=== PATIENT | female | born 1970 | race Caucasian/White ===

== ENCOUNTER 2016-03-26 10:32 | Observation (INO) | payer OTHER ==
[2016-03-26] MEDS ORDERED: LIDOCAINE 1% 5 ML SDV ONE (11:10)
[2016-03-26] MEDS ORDERED: SURGIFLO MATRIX KIT WITH THROMBIN TP ONE (11:13)
[2016-03-26] MEDS ORDERED: BACITRACIN 50,000 UNITS/10 ML SYR IRR ONE (11:13)
[2016-03-26] MEDS ORDERED: THROMBIN (RECOMBINANT) 20,000 UNIT VIAL TP ONE (11:13)
[2016-03-26] MEDS ORDERED: SKIN ADHESIVE (DERMABOND) 1 EACH TP ONE (11:13)
[2016-03-26] MEDS ORDERED: ceFAZolin 2 GM in D5W 100 ML IV ONE (11:30)
[2016-03-26] MEDS ORDERED: CHLORHEXIDINE GLUC HIBICLENS 118 ML BTL TP ONE (11:30)
[2016-03-26 11:57] LABS: % IMMATURE GRANULYOCYTES 0.1 % (0.0-1.1); ABSOLUTE IMMATURE GRANULOCYTES 0.01 10^3/uL (0.00-0.10); ADD DIFF? NO; ADD MORPH? NO; ADD SCAN? NO; ATYPICAL LYMPHOCYTE FLAG 10 (0-99); FRAGMENT RBC FLAG 0 (0-99); HEMATOCRIT 44.8 % (38.0-47.0); HEMOGLOBIN 15.2 g/dL (12.6-16.3); LEFT SHIFT FLG 0 (0-99); LIPEMIA HEMOLYSIS FLAG 90 (0-99); MEAN CELL HEMOGLOBIN 30.6 pg (27.9-34.1); MEAN CELL HEMOGLOBIN CONCENTR. 33.9 g/dL (32.4-36.7); MEAN CELL VOLUME 90.3 fL (81.5-99.8); MEAN PLATELET VOLUME 8.5 fL (8.7-11.7); PLATELET CLUMPS FLAG 0 (0-99); PLATELET COUNT 332 10^3/uL (150-400); RED BLOOD CELL COUNT 4.96 10^6/uL (4.18-5.33); RED CELL DISTRIBUTION WIDTH 12.6 % (11.5-15.2)
[2016-03-26] MEDS ORDERED: MIDAZOLAM 2 MG/2 ML VIAL ONE (12:05)
[2016-03-26] MEDS ORDERED: DEXAMETHASONE 4 MG/ML VIAL ONE (12:06)
[2016-03-26] MEDS ORDERED: LIDOCAINE 2% 100 MG/5 ML SYR IVP ONE (12:06)
[2016-03-26] MEDS ORDERED: ROCURONIUM 50 MG/5 ML VIAL ONE (12:06)
[2016-03-26] MEDS ORDERED: ONDANSETRON 4 MG/2 ML VIAL ONE (12:06)
[2016-03-26] MEDS ORDERED: REMIFENTANIL HCL 1 MG VIAL ONE (12:07)
[2016-03-26] MEDS ORDERED: PROPOFOL 200 MG/20 ML VIAL ONE (12:07)
[2016-03-26] MEDS ORDERED: fentaNYL 100 MCG/2 ML INJ ONE ×2 (12:07→14:12)
[2016-03-26] MEDS ORDERED: HYDROmorphONE/DILAUDID 2 MG/ML SYR ONE ×2 (12:07→14:53)
[2016-03-26] MEDS ORDERED: PROPOFOL/EMULSION 500 MG/50 ML BOTTLE IV ONE (12:08)
[2016-03-26] MEDS ORDERED: LACTULOSE 20 GM/30 ML UDCUP PO PRN (12:57)
[2016-03-26] MEDS ORDERED: ACETAMINOPHEN 325 MG TAB PO PRN (12:57)
[2016-03-26] MEDS ORDERED: ONDANSETRON 4 MG/2 ML VIAL IVP PRN (12:57)
[2016-03-26] MEDS ORDERED: DIAZEPAM 5 MG TAB PO PRN (12:57)
[2016-03-26] MEDS ORDERED: ONDANSETRON DISINTEGRATING 4 MG TAB PO PRN (12:57)
[2016-03-26] MEDS ORDERED: diphenhydrAMINE 25 MG CAP PO PRN (12:57)
[2016-03-26] MEDS ORDERED: POLYETHYLENE GLYCOL 3350 17 GM PKT PO PRN (12:57)
[2016-03-26] MEDS ORDERED: DIAZEPAM 10 MG/2 ML SYR IVP PRN (12:57)
[2016-03-26] MEDS ORDERED: MAGNESIUM HYDROXIDE 30 ML UDCUP PO PRN (12:57)
[2016-03-26] MEDS ORDERED: BISACODYL 10 MG SUPP PR PRN (12:57)
[2016-03-26] MEDS ORDERED: NS W/ 20 KCl/L 1,000 ML IV SCH (13:00)
[2016-03-26] MEDS ORDERED: HYDROmorphONE/DILAUDID 1 MG/ML SYR ONE (14:36)
[2016-03-26] MEDS ORDERED: DIAZEPAM 10 MG/2 ML SYR ONE (14:42)
--- NOTE | 2016-03-26 14:50 | POSTOPPROG ---
Post Op Note Date of Operation: 03/26/16 Surgeon: Justen Rashid Shortage Worker: TEJAL Cruz, PAC Pre-op Diagnosis: Adjacent level cervical stenosis Post-op Diagnosis: Adjacent level cervical stenosis Indication: Adjacent level cervical stenosis Procedure: ACDF C6/7 with removal of prior screws at c6 Inf/Abcess present in the surg proc area at time of surgery?: No EBL: 10cc PA Addendum - Addendum .: S Posterior neck pain O: NAD A&Ox3 MAEx4 5/5 and equal in BUE and BLE. Dressing c/d/i Plan: Advance diet as tolerated Optimize pain management Post op xrays pending DVT prophx: TEDs, SCDs, Lovenox POD3 Please notify NS with any change in neuro/motor exam
[2016-03-26] MEDS ORDERED: oxyCODONE IR 5 MG TAB PO PRN (15:38)
[2016-03-26] MEDS: morphINE SR 60 MG TAB PO SCH ×2 (16:26→21:43)
[2016-03-26] MEDS: oxyCODONE IR 5 MG TAB PO SCH ×2 (16:26→21:42)
--- NOTE | 2016-03-26 16:36 | DX ---
Intraoperative Fluoroscopy for Cervical Spine Surgery History: C6-C7 surgery. Comparisons: Outside x-rays from November 08, 2015. Fluoroscopy time: 7.5 seconds. Accumulative dose: 0.7 mGy. Findings: Two images demonstrate prior fusion of C4-C6, stable in appearance. There is new fusion a t C6-C7, with interbody bone graft placed, with screw fixation. No evidence for hardware complicatio n. Impression: Intraoperative fluoroscopy for cervical spine surgery at C6-C7.
[2016-03-26] MEDS: tiZANidine HCL 2 MG TAB PO PRN ×2 (16:40→21:43)
--- NOTE | 2016-03-26 18:58 | GOP ---
[f rep st] OPERATIVE REPORT DATE OF OPERATION: 03/26/2016 SURGEON: Justen Rashid MD CO SURGEON: Dr. Jeyson Burnett CONDENSER CLEANER: Aida Cruz PREOPERATIVE DIAGNOSIS: 1. Adjacent level breakdown C6-C7 with history of prior fusion C4 through C6. 2. Cervicalgia and radiculopathy. 3. Treatment refractory to nonoperative intervention. POSTOPERATIVE DIAGNOSIS: same PROCEDURE PERFORMED: 1. Anterior arthrodesis with approach to C6-C7. 2. Exploration of prior cervical fusion C5-C6 with subsequent removal of bilateral screws from the C6 level. 3. C6-C7 diskectomy and interbody fusion using a stand-alone 7 mm PEEK cage with integrated screws into the C6 and C7 vertebral bodies from the [employer]flux[employer]tr[employer] stand-alone system. 4. Use of intraoperative fluoroscopy, less than 1 hour physician time. 5. Use neuromonitoring. 6. Use of operating microscope. FINDINGS: per imaging SPECIMENS: None. ESTIMATED BLOOD LOSS: 30 mL. INDICATIONS: The patient is a 45-year-old woman, who has undergone prior multiple anterior cervical diskectomies and fusions, as well as posterior surgeries. She presented with worsening neck pain and radiculopathy, and had evidence of breakdown of the C6-C7 level which was inferior to her prior fusion at C4 through C6. After failing nonoperative intervention and given her multiple bilateral incisions and multiple surgical approaches, we decided to ask ENT for their assistance in this surgical procedure. Dr. Jeyson Burnett will dictate in a separate operative report the anterior cervical approach. She presents now for that surgical intervention. DESCRIPTION OF PROCEDURE: Patient was brought to the operating theater and underwent general endotracheal anesthesia without complications. She had Venodynes and ONEIDA hose placed. Her head was maintained supine on the operating table. Using lateral fluoroscopy and a spinal needle, we picked our entry point to the C6-C7 level. This was marked as a new right-sided transverse incision on the anterior aspect of her neck. This area was prepped and draped in the usual sterile surgical fashion. A timeout was completed per protocol, and the patient received antibiotics within 1 hour of incision. The incision was taken down with the scalpel, and then Dr. Jeyson Burnett in a separate op report will dictate the anterior exposure to the C6-C7 level. Once we landed on the inferior aspect of the plate at C6, we were able to identify the inferior plate and screws. She appeared to be solidly fused and given the fact that she had adhesions going superiorly, we decided not to expose the remainder of her plate. At this point, we exposed the C6-C7 level. We confirmed the level using lateral laparoscopy. After elevating the longus coli muscle from the anterior vertebral bodies of C6 and C7, deep retractors were placed to maintain our exposure. At this point, we sequentially removed the bilateral inferior screws from the C6 previous system, which were then passed off the field. [place] pins were placed into the plate into C6 and C7 and the C6-C7 disk space was placed in mild distraction. At this point, we completed a C6-C7 diskectomy with bilateral foraminotomies and osteophytectomies. We prepared the cartilaginous endplates and measured the interbody space. We then initially placed a titanium coated PEEK cage into the C6-C7 disk space filled with morselized autograft and allograft. We thought that we could place a small plate onto the vertebral bodies of C6 and C7; however, the C6 plate was too long and inferior and therefore we had to remove the titanium coated PEEK cage, and use a 7 mm stand-alone PEEK cage filled with morselized autograft and allograft. We placed two 13 mm screws through the cage itself into the vertebral bodies of C6 and C7. AP and lateral x-rays demonstrated good placement of the hardware. We obtained hemostasis with the bipolar and the wound was irrigated copiously with bacitracin irrigation. The wound was then closed in multiple layers using Vicryl sutures in the deep layers and Dermabond for the skin. The patient's wounds were dressed sterilely. She was then awakened, extubated, and taken to recovery room in stable condition. There were no complications and no noted changes on neuromonitoring throughout the procedure. COMPLICATIONS: None. /[id number]/MODL MTDD
[2016-03-26] MEDS: SERTRALINE HCL 100 MG TAB PO SCH (20:40)
[2016-03-26] MEDS: FAMOTIDINE 20 MG TAB PO SCH (20:40)
[2016-03-26] MEDS: SENNOSIDES/DOCUSATE SODIUM TAB PO SCH (20:40)
[2016-03-26] MEDS ORDERED: FAMOTIDINE 20 MG/NACL 50 ML IV SCH (21:00)
[2016-03-26] MEDS: ALPRAZolam 1 MG TAB PO PRN (23:21)
[2016-03-27] MEDS: tiZANidine HCL 2 MG TAB PO PRN ×3 (04:01→14:53)
[2016-03-27] MEDS ORDERED: LEVOTHYROXINE 88 MCG TAB PO SCH (06:00)
[2016-03-27 08:16] VITALS: BP 98/67; PULSE 65; RESP 16; TEMP 97.9; O2SAT 93
[2016-03-27] MEDS ORDERED: TOPIRAMATE 25 MG TAB PO SCH (09:00)
[2016-03-27] MEDS ORDERED: ARIPiprazole 10 MG TAB PO SCH (09:00)
[2016-03-27] MEDS: SENNOSIDES/DOCUSATE SODIUM TAB PO SCH (09:40)
--- NOTE | 2016-03-27 09:40 | NEUSURGPN ---
Assessment/Plan: 45 y/o female POD1 from C6/7 ACDF with exploration and removal of screws from prior fusion at C6. -Post op xrays pending -Optimize pain management -PT/OT -DVT prophx: TEDs, SCDs, Lovenox okay POD3 -Discussed with Dr. Rashid -Please notify NS with any change in neuro/motor exam Subjective: Posterior neck pain, throat pain Objective: NAD A&OX3 MAEx4, Neck soft, supple, no edema. 5/5 and equal in BUE and BLE - Physician Discussed Patient with : [facility] Physical Exam - Vitals, I&O, Labs I and O 03/26/16 03/27/16 03/28/16 05:59 05:59 05:59 Intake Total 2900 Output Total 925 Balance 1975 Intake: Oral (ml) 1100 IV Intake (ml) 1400 IV Infused (ml) 400 ceFAZolin 1 GM/DEXTROSE 100 50 ml @ 200 mls/hr IV Q8H VENANCIO Rx#:[id number] NS W/ 20 KCl/L 1,000 ml @ 300 75 mls/hr IV CONT VENANCIO Rx #:[id number] Output: Urine (ml) 900 Toilet 900 Estimated Blood Loss (ml) 25 Other: Number of Voids Toilet 2 Vital Signs Temp Pulse Resp BP Pulse Ox 36.6 C 65 16 98/67 L 93 03/27/16 08:00 03/27/16 08:00 03/27/16 08:00 03/27/16 08:00 03/27/16 08:00 Laboratory Results 03/26/16 11:45 ICD10 Worksheet Patient Problems: Problems Problem Status Diagnosed Cervical stenosis of spine Acute - ICD10 Problem Qualifiers (1) Cervical stenosis of spine
[2016-03-27] MEDS: FAMOTIDINE 20 MG TAB PO SCH (09:41)
[2016-03-27] MEDS: oxyCODONE IR 5 MG TAB PO SCH (09:41)
[2016-03-27] MEDS: SERTRALINE HCL 100 MG TAB PO SCH (09:41)
[2016-03-27] MEDS: morphINE SR 60 MG TAB PO SCH (09:42)
[2016-03-27] MEDS: ALPRAZolam 1 MG TAB PO PRN (09:54)
--- NOTE | 2016-03-27 10:08 | DX ---
Cervical Spine, Two Views History: Follow up fusion. Z09. Comparison: November 08, 2015 Findings: Alignment is stable and anatomic, with improvement in the prior C6-C7 spondylolisthesis. An terior and posterior fusion construct between C4 and C6 is in stable alignment with interval removal of the transvertebral body screws in C6. Since the prior exam there is a new interbody fusion device at C6-C7. There is new diffuse mild prevertebral soft tissue swelling greatest in the lower area. Th ere is a small amount of postoperative prevertebral gas between C1 and C3. There is no evidence for h ardware loosening or uncoupling. Impression: Excellent postoperative alignment.
[2016-03-27] MEDS ORDERED: oxyCODONE IR 5 MG TAB PO PRN (11:35)
[2016-03-29] MEDS ORDERED: ENOXAPARIN 40 MG/0.4 ML SYR SC SCH (09:00)
== END 2016-03-27 15:18 | disposition home or self-care (01) ==
LOC: F3N 10:32
PROVIDERS: ADMIT Neurological Surgery; ATTEND Neurological Surgery
PROC: 4A1004G Monitoring of Central Nervous Electrical Activity, Intraoperative, Open Approach (ICD-10-PCS; principal; 2016-03-26 12:15)
PROC: 0RP104Z Removal of Internal Fixation Device from Cervical Vertebral Joint, Open Approach (ICD-10-PCS; principal; 2016-03-26 12:15)
PROC: 0RG10A0 Fusion of Cervical Vertebral Joint with Interbody Fusion Device, Anterior Approach, Anterior Column, Open Approach (ICD-10-PCS; principal; 2016-03-26 12:15)
PROC: 8E0 Other Procedures, Physiological Systems and Anatomical Regions, Other Procedures (ICD-10-PCS; principal; 2016-03-26 12:15)
DX: M48.02 Spinal stenosis, cervical region (principal); M50.30 Other cervical disc degeneration, unspecified cervical region; M54.12 Radiculopathy, cervical region; E03.9 Hypothyroidism, unspecified; G43.909 Migraine, unspecified, not intractable, without status migrainosus; Z98.1 Arthrodesis status
CPT/HCPCS: 20680; 22551; 72040; 76001; 97165; G0378; C1713; J0690; J1100; J1170; J2001; J2250; J2405; J2704; J3010